=== PATIENT | male | born 1965 | race Caucasian/White ===

== ENCOUNTER 2016-12-07 12:39 | Emergency (ER) | payer OTHER ==
--- NOTE | 2016-12-07 15:47 | RAD ---
INDICATION: Right lower extremity pain and swelling. COMPARISON: There are no prior studies available for comparison. TECHNIQUE: Multiple real-time, color flow and Doppler tracings of the right lower extremity were obtained. FINDINGS: The common femoral, femoral, profunda femoral and popliteal veins all demonstrate normal compressibility, augmentation with compression and phasic response with respiration. The posterior tibial and peroneal veins demonstrate normal compressibility and augmentation with compression. IMPRESSION: NO EVIDENCE FOR DEEP VENOUS THROMBOSIS.
[2016-12-07 16:20] VITALS: BP 141/88
--- NOTE | 2016-12-07 18:48 | ED ---
Lower Extremity - HPI Summary HPI Summary: Patient presents with 1 week s/p trauma to the right lower extremity with concern for cellulitis or DVT. He states the area which has a contusion, he is now experiencing tightness and bruising around the area. Denies fever, chills or sweats. He has not taken anything for relief, but has been using ice. Denies other trauma or concern. Pain is 2/10 and does not radiate. no pain behind the knee or calf. The ankle is without involvement. - History of Current Complaint Chief Complaint: EDExtremityLower Stated Complaint: RIGHT LEG PAIN Time Seen by Provider: 12/07/16 15:56 Hx Obtained From: Patient Mechanism Of Injury: Direct Blow Onset of Pain: Immediate Onset/Duration: Minutes Severity Initially: Moderate Severity Currently: Moderate Pain Intensity: 4 Pain Scale Used: 0-10 Numeric Timing: Constant Location: Is Discrete @ - anterior right lower extremity Associated Signs And Symptoms: Positive: Redness, Bruising Aggravating Factor(s): Standing, Ambulation Alleviating Factor(s): Rest Able to Bear Weight: No - Risk Factors Gout Risk Factors: Negative DVT Risk Factors: Negative Septic Arthritis Risk Factor: Negative - Allergies/Home Medications Allergies/Adverse Reactions: Allergies Allergy/AdvReac Type Severity Reaction Status Date / Time Penicillins [PCN] Allergy Unknown Verified 12/28/15 10:56 Reaction Details PMH/Surg Hx/FS Hx/Imm Hx Previously Healthy: Yes Endocrine/Hematology History: Denies: Hx Diabetes Cardiovascular History: Reports: Hx Hypertension - CONTROLLED WITH MEDICATION Denies: Hx Pacemaker/ICD History: Reports: Hx Kidney Stones - RIGHT SIDE Denies: Hx Dialysis, Hx Renal Disease Sensory History: Denies: Hx Contacts or Glasses, Hx Hearing Aid Opthamlomology History: Denies: Hx Contacts or Glasses Psychiatric History: Denies: Hx Panic Disorder - Surgical History Surgery Procedure, Year, and Place: HERNIA,LSP SURGERY 02/28, TOTAL HIP X2 SAME SIDE Hx Anesthesia Reactions: No - Immunization History Hx Pertussis Vaccination: No Immunizations Up to Date: Unable to Obtain/Confirm Infectious Disease History: No Infectious Disease History: Denies: Traveled Outside the [place] in Last 30 Days - Social History Occupation: Employed Full-time Lives: With Family Alcohol Use: Daily Alcohol Amount: 2-3/DEEP Hx Substance Use: Yes Substance Use Type: Reports: Marijuana Substance Use Comment - Amount & Last Used: 02/16/14 Hx Tobacco Use: Yes Smoking Status (MU): Former Smoker Amount Used/How Often: 1.5 PACK/DAY Review of Systems Constitutional: Negative Eyes: Negative Cardiovascular: Negative Respiratory: Negative Positive: no symptoms reported, see HPI Positive: Arthralgia, Myalgia Positive: Bruising Neurological: Negative Psychological: Normal All Other Systems Reviewed And Are Negative: Yes Physical Exam Triage Information Reviewed: Yes Vital Signs On Initial Exam: Initial Vitals Temp Pulse Resp BP Pulse Ox 97.9 F 82 16 129/89 92 12/07/16 12:45 12/07/16 12:45 12/07/16 12:45 12/07/16 12:45 12/07/16 12:45 Vital Signs Reviewed: Yes Appearance: Positive: Well-Appearing, No Pain Distress Skin: Positive: Warm, Skin Color Reflects Adequate Perfusion, Other - bruising located anteriorly over right lower extremity Head/Face: Positive: Normal Head/Face Inspection Eyes: Positive: EOMI, DAMIR, Conjunctiva Clear Neck: Positive: Supple, No Lymphadenopathy Respiratory/Lung Sounds: Positive: Clear to Auscultation, Breath Sounds Present Cardiovascular: Positive: Normal, RRR Musculoskeletal: Positive: Pain @ - anterior right lower extremity pain and bruising Neurological: Positive: Sensory/Motor Intact, Alert, Oriented to Person Place, Time, Speech Normal Psychiatric: Positive: Normal Diagnostics - Vital Signs Vital Signs Temp Pulse Resp BP Pulse Ox 12/07/16 16:18 75 20 141/88 12/07/16 15:39 97.3 F 80 17 144/81 98 12/07/16 14:28 97.8 F 70 16 117/72 96 12/07/16 12:45 97.9 F 82 16 129/89 92 - Laboratory Lab Statement: Any lab studies that have been ordered have been reviewed, and results considered in the medical decision making process. Lower Extremity Course/Dx - Course Course Of Treatment: anterior right lower extremity pain and bruising s/p 1 week contusion to the leg. Denies history of blood clots. Ice with minimal improvement. US negative for DVT or other pathology. Pulses +2 bilaterally. Denies numbness or tingling. Denies temperature changes. No evidence of compartment. Encouraged ibuprofen, ice and elevation. Return precautions for compartment syndrome and cellulitis discussed. Patient made aware of plan and is OK with discharge. Patient will follow up with PCP and return if symptoms become worse. Return precautions given, medications and side effects reviewed. - Diagnoses Differential Diagnosis/HQI/PQRI: Positive: Contusion, Fracture (Closed), Fracture (Open), Strain Provider Diagnoses: Hematoma of leg Discharge - Discharge Plan Condition: Stable Disposition: HOME Patient Education Materials: Hematoma (ED) Referrals: Immanuel Albright [Primary Care Provider] - Additional Instructions: If you develop any worsening redness around the area, more warmth, red streaking moving away from the area, you develop a fever or have any other worsening symptoms, return to the ED immediately. Ice, elevate and 600mg ibuprofen 3x daily For worsening symptoms, return to the ED immediately.
== END 2016-12-07 16:20 | disposition home or self-care (01) ==
LOC: ED 12:39
DX: S80.11XA Contusion of right lower leg, initial encounter (principal); X58.XXXA Exposure to other specified factors, initial encounter; Y93.89 Activity, other specified; Y92.9 Unspecified place or not applicable; Z87.891 Personal history of nicotine dependence
CPT/HCPCS: 99282

== ENCOUNTER → 2018-07-07 13:57 | Emergency (ER) | payer MEDICAID, OTHER ==
--- NOTE | 2018-07-07 15:17 | ED ---
Hypertension - HPI Summary HPI Summary: This pt is a 53 y/o male presenting [place] [facility] [place]/o high blood pressure for the last 3 weeks consistently. Pt reports he has hx of HTN and has been on medications for this. He notes his medications were changed in 2017 but they have not been working. Pt reports heart burning sensation for the last 3 days, sore neck, pressure on head, SOB. He describes his chest discomfort is constant. Denies headache, nausea, swelling in LE, pain in LE. Pt called his PCP today and was advised to come to the ED. PMHx: HTN, borderline DM, COPD, lyme disease. 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 Denies tobacco use. - History of Current Complaint Chief Complaint: EDChestPainROMI Stated Complaint: POSS HIGH BLOOD PRESSURE Time Seen by Provider: 07/07/18 14:48 Hx Obtained From: Patient Onset/Duration: Started Weeks Ago - 3, Still Present Timing: Lasting Weeks - 3 Aggravating Factor(s): Nothing Alleviating Factor(s): Nothing Associated Signs & Symptoms: Chest Pain - burning sensation in chest, SOB, Other : - POS: head pressure, neck is sore - Allergies/Home Medications Allergies/Adverse Reactions: Allergies Allergy/AdvReac Type Severity Reaction Status Date / Time Penicillins Allergy Unknown Verified 07/07/18 14:08 Reaction Details Home Medications: Home Medications Atorvastatin* [Lipitor*] 40 mg PO QPM 07/07/18 [History Confirmed 07/07/18] Spironolactone TAB* [Aldactone TAB*] 25 mg PO DAILY 07/07/18 [History Confirmed 07/07/18] Verapamil HCl [Verapamil HCl Sr] 240 mg PO DAILY 07/07/18 [History Confirmed ] PMH/Surg Hx/FS Hx/Imm Hx Endocrine/Hematology History: Denies: Hx Diabetes Cardiovascular History: Reports: Hx Hypertension - CONTROLLED WITH MEDICATION Denies: Hx Pacemaker/ICD Respiratory History: Reports: Hx Chronic Obstructive Pulmonary Disease (COPD) History: Reports: Hx Kidney Stones - RIGHT SIDE Denies: Hx Dialysis, Hx Renal Disease Sensory History: Denies: Hx Contacts or Glasses Opthamlomology History: Denies: Hx Contacts or Glasses Psychiatric History: Denies: Hx Panic Disorder - Surgical History Surgery Procedure, Year, and Place: HERNIA,LSP SURGERY 02/28, TOTAL HIP X2 SAME SIDE Hx Anesthesia Reactions: No Infectious Disease History: No Infectious Disease History: Denies: Traveled Outside the [place] in Last 30 Days - Family History Known Family History: Positive: Cardiac Disease Family History: Liver CA. Breast CA - Social History Alcohol Use: Occasionally Alcohol Amount: 2-3/DEEP Hx Substance Use: Yes Substance Use Type: Reports: Marijuana Substance Use Comment - Amount & Last Used: quit 06/23/18 Hx Tobacco Use: Yes Smoking Status (MU): Former Smoker Amount Used/How Often: 1.5 PACK/DAY Review of Systems Negative: Fever, Chills Cardiovascular: Other - POS: heart burning Positive: Shortness Of Breath Negative: Nausea Musculoskeletal: Other - POS: sore neck Negative: Edema - in LE, Other - NEG: LE pain Neurological: Other - POS: pressure on head Negative: Headache All Other Systems Reviewed And Are Negative: Yes Physical Exam - Summary Physical Exam Summary: Appearance: Well-appearing, Well-nourished, lying in bed comfortably Skin: Warm, dry, no obvious rash Eyes: sclera anicteric, no conjunctival pallor ENT: mucous membranes moist, pharynx appears normal Neck: Supple, nontender Respiratory: Clear to auscultation, no signs of respiratory distress Cardiovascular: Normal S1, S2. No murmurs. Normal distal pulses in tibial and radial bilaterally. Abdomen: Soft, nontender, normal active bowel sounds present Musculoskeletal: Normal, Strength/ROM Intact Neurological: A&Ox3, awake and alert, mentation is normal, speech is fluent and appropriate Psychiatric: affect is normal, does not appear anxious or depressed Triage Information Reviewed: Yes Vital Signs On Initial Exam: Initial Vitals Temp Pulse Resp BP Pulse Ox 98.7 F 87 18 179/119 97 07/07/18 14:04 07/07/18 14:04 07/07/18 14:04 07/07/18 14:04 07/07/18 14:04 Vital Signs Reviewed: Yes Diagnostics - Vital Signs Vital Signs Temp Pulse Resp BP Pulse Ox 07/07/18 14:55 97 07/07/18 14:48 77 98 07/07/18 14:46 75 155/109 98 07/07/18 14:04 98.7 F 87 18 179/119 97 - Laboratory Result Diagrams: 07/07/18 15:01 02/20/19 15:01 Lab Statement: Any lab studies that have been ordered have been reviewed, and results considered in the medical decision making process. - Radiology Chest XR Radiology Interpretation Completed By: Radiologist Summary of Radiographic Findings: IMPRESSION: No active cardiopulmonary disease. Dr. Boo has reviewed this report. - EKG 14:11 Cardiac Rate: NL - at 79 bpm EKG Rhythm: Sinus Rhythm Summary of EKG Findings: NSR at 79 BPM, P waves, QRS complex, and T waves are within normal limits, T waves and intervals are normal, no ischemic changes. This is a normal EKG Re-Evaluation - Re-Evaluation First Eval Re-Evaluation Time: 17:03 Comment: I reviewed lab work and XR results with the pt. He will be discharged home. Hypertension Course/Dx - Course Assessment/Plan: Pt is a 53 y/o male, with hx of HTN compliant with medications , who presents with high blood pressure for the last 3 weeks consistently. Additionally reports heart burning sensation for the last 3 days, sore neck, pressure on head, SOB. Blood work obtained and unremarkable. Chest XR is negative for a cardiopulmonary disease. EKG shows normal sinus rhythm. Pt will be discharged home with follow up from his PCP to have medications adjusted. He is instructed to return to the ED for any worsening or new symptoms. - Diagnoses Provider Diagnoses: Chest pain Discharge - Sign-Out/Discharge Documenting (check all that apply): Patient Departure - Discharge home Patient Received Moderate/Deep Sedation with Procedure: No - Discharge Plan Condition: Good Disposition: HOME Patient Education Materials: Chest Pain (ED) Referrals: [facility] [Outside] Additional Instructions: The tests we did today did not show any sign of heart damage. I would not recommend any change in your medication at present, but you should continue to work with your primary care provider to adjust your medication and get it in a better range. - Billing Disposition and Condition Condition: GOOD Disposition: Home - Attestation Statements Document Initiated by Pastora: Yes Documenting Scribe: Jennifer Triplett Provider For Whom Pastora is Documenting (Include Credential): Poncho Boo MD Scribe Attestation: Jennifer White scribed for Poncho Boo MD on 07/08/18 at 1256. Scribe Documentation Reviewed: Yes Provider Attestation: The documentation as recorded by the Jennifer billy accurately reflects the service I personally performed and the decisions made by me, Poncho Boo MD Status of Scribe Document: Viewed
[2018-07-07 15:31] LABS: ABS Basophils 0.1 10^3/ul (0-0.2); ABS Eosinophils 0.1 10^3/ul (0-0.6); ABS Lymphocytes 2.9 10^3/ul (1.0-4.8); ABS Monocytes 0.8 10^3/ul (0-0.8); ABS Neutrophils 6.4 10^3/ul (1.5-7.7); ABS Nucleated RBC 0 10^3/ul; Eosinophil % 0.9 %; Hematocrit 45 % (42-52); Hemoglobin 15.1 g/dl (14.0-18.0); Lymphocyte % 28.1 %; Mean Corpuscular HGB Conc 34 g/dl (31-36); Mean Corpuscular Hemoglobin 32 pg (27-31); Mean Corpuscular Volume 96 fL (80-94); Mean Platelet Volume 8.2 fL (7.4-10.4); Nucleated Red Blood Cells % 0.1; Platelet Count 248 10^3/ul (150-450); Red Blood Count 4.68 10^6/ul (4.00-5.40); Red Cell Distribution Width 14 % (10.5-15); White Blood Count 10.2 10^3/ul (3.5-10.8)
[2018-07-07 15:42] LABS: Albumin 4.6 g/dL (3.2-5.2); Albumin/Globulin Ratio 1.7 (1-3); BUN/Creatinine Ratio 23.4 (8-20); Calcium 9.8 mg/dL (8.6-10.3); EGFR African American 128.9 (>60); EGFR Non-African American 106.5 (>60); Globulin 2.7 g/dL (2-4); Potassium 4.2 mmol/L (3.5-5.0); Total Bilirubin 0.5 mg/dL (0.2-1.0); Total Protein 7.3 g/dL (6.4-8.9)
[2018-07-07 17:43] VITALS: BP 143/79
== END | disposition home or self-care (01) ==
LOC: ED 13:57
DX: R07.89 Other chest pain (principal); R06.02 Shortness of breath; I10 Essential (primary) hypertension; Z88.0 Allergy status to penicillin; Z87.891 Personal history of nicotine dependence
CPT/HCPCS: 36415; 71046; 80053; 84484; 85025; 93005; 99282